=== PATIENT | male | born 1985 ===

== ENCOUNTER → 2017-03-30 09:20 | Emergency (ER) | payer OTHER ==
[~2017-03-30 09:20] MED LIST: Al Hydrox/Mg Hydrox/Simet LIQ* 30 ML UDC PO ONE; HYDROmorphone INJ* 1 MG/ML CARPUJECT SYRINGE IV ONE; Ketorolac INJ* 30 MG/ML 1 ML VIAL IV ONE; Lidocaine 2% VISCOUS* 15 ML UDC PO ONE; Metoclopramide IV* 5 MG/ML 2 ML VIAL IV SLOW PU ONE; NS 0.9% 1000 ML* 1,000 ML IV ONE; NS 0.9% 1000 ML* 2,000 ML IV ONE; Ondansetron INJ* 2 MG/ML VIAL IV ONE; Pantoprazole IV* 40 MG IV ONE
[2017-03-30 09:54] LABS: Hematocrit 44 % (42-52); Hemoglobin 15.3 g/dl (14.0-18.0); Mean Corpuscular HGB Conc 35 g/dl (31-36); Mean Corpuscular Hemoglobin 30 pg (27-31); Mean Corpuscular Volume 85 fL (80-94); Mean Platelet Volume 8 um3 (7.4-10.4); Red Blood Count 5.13 10^6/ul (4.0-5.4); Red Cell Distribution Width 13 % (10.5-15); White Blood Count 7.2 10^3/ul (3.5-10.8)
[2017-03-30 10:07] LABS: Albumin 4.8 g/dL (3.2-5.2); C Reactive Protein 48.09 mg/L (< 5.00); Calcium 9.7 mg/dL (8.6-10.3); EGFR African American 118.1 (>60); EGFR Non-African American 91.9 (>60); Globulin 3.2 g/dL (2-4); Potassium 4.1 mmol/L (3.5-5.0); Total Bilirubin 0.8 mg/dL (0.2-1.0)
--- NOTE | 2017-03-30 10:28 | RAD ---
CLINICAL HISTORY: Bilateral flank pain COMPARISON: None TECHNIQUE: Multiple contiguous axial CT scans were obtained of the abdomen and pelvis, without intravenous contrast enhancement. Coronal and sagittal multiplanar reformations are submitted for review. Oral contrast was not administered. FINDINGS: The study is limited by the lack of intravenous contrast. This limits evaluation of the solid organs and vasculature. LUNG BASES: The lung bases are clear. LIVER: The liver is normal in shape, size, contour, and attenuation. BILE DUCTS: There is no intrahepatic or extrahepatic biliary dilatation. GALLBLADDER: The gallbladder is not visualized. Surgical clips are noted in the gallbladder fossa. PANCREAS: The pancreas is normal, without mass or ductal dilatation. SPLEEN: Normal in size and appearance. UPPER GI TRACT: Evaluation of the gastrointestinal tract is limited by incomplete gastric distention. The upper GI tract is unremarkable. SMALL BOWEL AND MESENTERY: The small bowel is normal in contour, course, and caliber. There is no obstruction or dilatation. COLON: The colon is normal in contour, course, caliber. There is no pericolonic inflammatory change. There is a tubular, vermiform, hollow viscus that is blind ending, and originates from the cecum, consistent with a normal appendix. There is no periappendiceal inflammatory change. This is best seen on coronal image 42 ADRENALS: Normal bilaterally. KIDNEYS: The kidneys are normal in shape, size, contour, and axis. There is no hydronephrosis or nephrolithiasis. BLADDER: The bladder is smooth in contour. PELVIC ORGANS: The prostate gland is normal. The seminal vesicles are symmetric. AORTA: The aorta is normal. IVC: Unremarkable LYMPH NODES: There is no lymphadenopathy by size criteria. ABDOMINAL WALL: There is no evidence for abdominal wall hernia. BONES AND SOFT TISSUES: The patient is status post internal fixation of the left femur OTHER: None IMPRESSION: NO HYDRONEPHROSIS OR NEPHROLITHIASIS.
[2017-03-30 13:06] LABS: Urine Bacteria Absent (Absent); Urine Bilirubin Negative (Negative); Urine Glucose 1+(50 mg/dL) (Negative); Urine Nitrite Negative (Negative)
--- NOTE | 2017-03-30 14:05 | ED ---
Sukh Solitario Angela, scribed for Ricki Santiago MD on 03/30/17 at 1009 . Back Pain - HPI Summary HPI Summary: This pt is a 32 y/o male presents to [facility] [place]/o progressively worsening bilateral flank pain x3 days, worse since yesterday. He describes his pain on his lower back off to the bilateral sides but no spine tenderness. Pt reports associated symptoms of decreased appetite, no bowel movements (usually pt is regular) x3 days and abd soreness. Yesterday, pt rates his pain 9/10 in severity and was unable to sleep secondary to pain. Today upon coming to the ED , his pain is rated 10/10 in severity. Pt additionally c/o nausea and vomiting today. Pt denies SOB, cough, chest congestions, dysuria, urgency, frequency. No PMHx of kidney stones, GERD. - History of Current Complaint Chief Complaint: EDFlankPain Stated Complaint: POSS KIDNEY STONE Time Seen by Provider: 03/30/17 09:49 Hx Obtained From: Patient Onset/Duration: Gradual Onset, Lasting Days Onset/Duration: Started Days Ago Timing: Constant Back Pain Location: Is Discrete @ - bilateral flank Pain Intensity: 10 Pain Scale Used: 0-10 Numeric Character: Sharp Associated Signs And Symptoms: Positive: Flank Pain, Other - nausea, vomiting. Negative: Fever, Weakness, Numbness, Abdominal Pain - Allergies/Home Medications Allergies/Adverse Reactions: Allergies Allergy/AdvReac Type Severity Reaction Status Date / Time No Known Allergies Allergy Verified 03/30/17 09:29 PMH/Surg Hx/FS Hx/Imm Hx Endocrine/Hematology History: Denies: Hx Diabetes Cardiovascular History: Denies: Hx Hypertension GI History: Denies: Hx Gastroesophageal Reflux Disease History: Denies: Hx Kidney Stones Infectious Disease History: Yes Infectious Disease History: Denies: Traveled Outside the [place] in Last 30 Days - Family History Known Family History: Negative: Cardiac Disease, Hypertension, Diabetes - Social History Alcohol Use: None Hx Substance Use: No Substance Use Type: Reports: None Hx Tobacco Use: No Smoking Status (MU): Never Smoked Tobacco Review of Systems Negative: Fever, Chills Eyes: Negative ENT: Negative Negative: Shortness Of Breath Positive: Abdominal Pain, Vomiting, Nausea, Other - constipation Positive: flank pain, hematuria Musculoskeletal: Negative Skin: Negative All Other Systems Reviewed And Are Negative: Yes Physical Exam - Summary Physical Exam Summary: General: well-appearing, mild pain distress Skin: warm, color reflects adequate perfusion, dry Head: normal Eyes: EOMI, RICHI ENT: normal Neck: supple, nontender Respiratory: CTA, breath sounds present Cardiovascular: RRR Abdomen: soft, mild upper abd tenderness. There is no pain with ROM. Bowel: hypoactive bowel sounds Musculoskeletal: normal, strength/ROM intact. Back is not tender. Neurological: normal, sensory/motor intact, A&O x3 Psychological: affect/mood appropriate Triage Information Reviewed: Yes Vital Signs On Initial Exam: Initial Vitals Temp Pulse Resp BP Pulse Ox 95.5 F 64 20 177/99 100 03/30/17 09:25 03/30/17 09:25 03/30/17 09:25 03/30/17 09:25 03/30/17 09:25 Vital Signs Reviewed: Yes Diagnostics - Vital Signs Vital Signs Temp Pulse Resp BP Pulse Ox 03/30/17 09:43 18 03/30/17 09:25 95.5 F 64 20 177/99 100 - Laboratory Lab Results: Lab Results 03/30/17 Range/Units 09:40 WBC 7.2 (3.5-10.8) 10^3/ul RBC 5.13 (4.0-5.4) 10^6/ul Hgb 15.3 (14.0-18.0) g/dl Hct 44 (42-52) % MCV 85 (80-94) fL MCH 30 (27-31) pg MCHC 35 (31-36) g/dl RDW 13 (10.5-15) % Plt Count 211 (150-450) 10^3/ul MPV 8 (7.4-10.4) um3 Neut % (Auto) 77.6 (38-83) % Lymph % (Auto) 13.4 L (25-47) % [place] % (Auto) 7.7 (1-9) % Eos % (Auto) 0.8 (0-6) % Baso % (Auto) 0.5 (0-2) % Absolute Neuts (auto) 5.6 (1.5-7.7) 10^3/ul Absolute Lymphs (auto) 1.0 (1.0-4.8) 10^3/ul Absolute Monos (auto) 0.6 (0-0.8) 10^3/ul Absolute Eos (auto) 0.1 (0-0.6) 10^3/ul Absolute Basos (auto) 0 (0-0.2) 10^3/ul Absolute Nucleated RBC 0.01 10^3/ul Nucleated RBC % 0.1 Result Diagrams: 03/30/17 09:40 03/30/17 09:40 Lab Statement: Any lab studies that have been ordered have been reviewed, and results considered in the medical decision making process. - CT Abd/Pel CT CT Interpretation: No Acute Changes - IMPRESSION: No hydronephrosis or nephrolithiasis. ED physician has reviewed this radiology report and agrees. CT Interpretation Completed By: Radiologist - EKG 1023 Cardiac Rate: Bradycardia - 49 bpm EKG Rhythm: Sinus Rhythm Ectopy: None EKG Interpretation: ST elevations at anterior leads, concave up. Back Pain Course/Dx - Course Course Of Treatment: Pt is a 32 y/o male presents to [facility] c/o progressively worsening bilateral flank pain x3 days, worse since yesterday. Medications reviewed. BP noted and advised to follow up with PCP. PAIN DECREASED AFTER GI COCKTAIL. DISCUSSED RESULTS WITH PATIENT/PARTNER. WILL TREAT FOR EPIGASTRIC PAIN/NAUSEA/VOMITING. F/U PMD; RETURN IF WORSE. NO CRITICAL CARE TIME. - Diagnoses Provider Diagnoses: Back pain, Epigastric abdominal pain, Vomiting, Dehydration, Hematuria Discharge - Discharge Plan Condition: Stable Disposition: HOME Prescriptions: HYDROcodone/ACETAMIN 5-325 MG* [Posey 5-325 TAB*] 1 tab PO Q4H PRN #10 tab MDD 6 PRN Reason: Pain Metoclopramide TAB* [Reglan TAB*] 10 mg PO Q6H PRN #10 tab PRN Reason: Nausea Omeprazole CAP* [Prilosec CAP* 20 MG] 20 mg PO BID #60 cap. Ondansetron ODT TAB* [Zofran 4 MG Odt TAB*] 4 mg PO Q6H PRN #10 tab.odt PRN Reason: Nausea Sucralfate TAB* [Carafate*] 1 gm PO QID #90 tab Patient Education Materials: Dehydration (ED), Acute Nausea and Vomiting (ED), Back Pain (ED), Epigastric Pain (ED), Hematuria (ED) Referrals: [facility] [[facility]] Additional Instructions: FOLLOW UP WITH YOUR DOCTOR. RETURN TO THE EMERGENCY DEPARTMENT FOR ANY WORSENING OF YOUR CONDITION; PAIN, DEHYDRATION, FEVER, YOU FEEL ILL, YOU FEEL LIKE PASSING OUT, BLOOD IN YOUR STOOL OR EMESIS OR QUESTIONS OR CONCERNS. The documentation as recorded by the Sukh corona Angela accurately reflects the service I personally performed and the decisions made by me, Ricki Santiago MD.
== END | disposition home or self-care (01) ==
LOC: ED 09:20
DX: M54.2 Cervicalgia (principal); R10.13 Epigastric pain; R11.10 Vomiting, unspecified; E86.0 Dehydration; R31.9 Hematuria, unspecified; R00.1 Bradycardia, unspecified
CPT/HCPCS: 36415; 74176; 80053; 81003; 81015; 83605; 83690; 84484; 85025; 85379; 85610; 85730; 86140; 93005; 96361; 96374; 96375; 99283; A9270-GY; J1170; J1885; J2405; J2765